=== PATIENT | female | born 1945 | race Caucasian/White ===

== ENCOUNTER 2020-10-28 21:57 | Emergency (ER) | payer MEDICARE, OTHER ==
[~2020-10-28] VITALS: Ht 165.1 cm; Wt 81.6 kg
[2020-10-28 21:57] VITALS: BP_SYST 148
[~2020-10-28 21:57] MED LIST: ASPI-524 PO; ATEN-41 PO; LEFL20TA17 PO; LOSA50TA28 PO; NORT25CA PO; OMEP20CA15 PO; PRED5TAB PO; TRAM50TA2 PO
[2020-10-28] MEDS ORDERED: ASPIRIN 81 MG TAB.CHEW PO ONE (22:30)
[2020-10-28 23:11] LABS: ANION GAP 7 (5-15); CALCIUM 9.1 mg/dL (8.4-11.0); CHLORIDE 92 mmol/L (98-107); CREATININE 1.03 mg/dL (0.55-1.30); GLUCOSE 134 mg/dL (70-99); SODIUM SERUM 127 mmol/L (136-145); UREA NITROGEN, BLOOD 10 mg/dL (8-21)
[2020-10-28 23:18] LABS: ALANINE AMINOTRANSFERASE 26 U/L (12-78); ALBUMIN 3.6 g/dL (3.4-4.8); ASPARTATE AMINOTRANSFERASE 18 U/L (10-37); TOTAL BILIRUBIN 0.3 mg/dL (0.0-1.0)
[2020-10-28 23:22] LABS: BASOPHILS # (AUTO) 0.1 K/uL (0.0-0.2); BASOPHILS % (AUTO) 0.7 % (0.0-2.0); EOSINOPHILS # (AUTO) 0.8 K/uL (0.0-0.4); EOSINOPHILS % (AUTO) 8.7 % (0.0-4.0); HEMATOCRIT 34.3 % (36-48); HEMOGLOBIN 11.9 g/dL (12.0-16.0); LYMPHOCYTES # (AUTO) 2.6 K/uL (1.0-5.5); MEAN CORPUSCULAR HEMOGLOBIN 32 pg (27-31); MEAN CORPUSCULAR HGB CONC 35 % (32-36); MEAN CORPUSCULAR VOLUME 93 fL (79.0-98.0); MONOCYTES # (AUTO) 0.4 K/uL (0.0-1.0); MONOCYTES % (AUTO) 4.4 % (1.7-9.3); NEUTROPHILS # (AUTO) 5.6 K/uL (1.8-7.7); NEUTROPHILS % (AUTO) 59.2 % (40.0-70.0); PLATELET COUNT (AUTO) 255 K/uL (130-430); RED BLOOD CELL COUNT(AUTO) 3.69 MIL/uL (4.2-6.2); RED CELL DISTRIBUTION WIDTH 13.8 % (9.0-15.0); WHITE BLOOD COUNT (AUTO) 9.5 K/uL (4.8-10.8)
--- NOTE | 2020-10-29 00:22 | NUR ---
ER Dr. Astorga in triage examining patient.
[2020-10-29] MEDS ORDERED: NACL 0.9% 1,000 ML IV ONE (00:30)
--- NOTE | 2020-10-29 02:20 | NUR ---
Patient to ER H1 to gown for evaluation. Side rails up.
--- NOTE | 2020-10-29 02:22 | NUR ---
Patient complains of chest pain x 3 days that radiates to left arm. Pt states she has numbness to arm. Pt denies N/V, fever, or SOB. No other injuries/complaints per patient or noted.
[2020-10-29] MEDS ORDERED: MORPHINE 2 MG/ML INJ. SYRINGE IVP ONE (02:30)
--- NOTE | 2020-10-29 02:30 | NUR ---
ER Dr. Astorga at bedside examining patient.
--- NOTE | 2020-10-29 03:45 | NUR ---
Assisted patient to restroom. Pt provided urine sample, specimen was sent to lab. Pt assisted back to bed in comfortable position.
--- NOTE | 2020-10-29 04:22 | NUR ---
Patient sleeping comfortably in bed. No acute distress, will continue to monitor.
[2020-10-29] MEDS ORDERED: KETOROLAC TROMETHAMINE 30 MG VIAL IVP ONE (05:30)
[2020-10-29] MEDS ORDERED: methocarbamoL 500 MG TABLET PO ONE (05:30)
[2020-10-29] MEDS ORDERED: methocarbamoL 500 MG TABLET ONE (05:34)
--- NOTE | 2020-10-29 06:50 | NUR ---
Assisted patient back to bed. No acute distress, will continue to monitor.
--- NOTE | 2020-10-29 07:25 | NUR ---
report received from Harman SAMANO. Pt is currently waiting for CT head results
[2020-10-29 07:50] LABS: THYROID STIMULATING HORMONE 7.64 uIu/mL (0.36-3.74)
--- NOTE | 2020-10-29 08:40 | NUR ---
Patient transported to radiology via , accompanied by [employer].
[2020-10-29 09:20] VITALS: BP_SYST 152
== END 2020-10-29 09:20 | disposition home or self-care (01) ==
LOC: SED 21:57
DX: R07.89 Other chest pain (principal); R20.2 Paresthesia of skin; I10 Essential (primary) hypertension; K21.9 Gastro-esophageal reflux disease without esophagitis; Z79.899 Other long term (current) drug therapy; Z79.82 Long term (current) use of aspirin
CPT/HCPCS: 36415; 70450; 71045; 76376; 80053; 82550; 83880; 84295; 84443; 84484; 85025; 93005; 96361; 96374; 96375; 99285; J1885; J2270; J7030

== ENCOUNTER 2023-07-28 11:10 | Inpatient (IN) | payer MEDICARE, OTHER ==
[~2023-07-28] VITALS: Ht 162.6 cm; Wt 81.6 kg
[2023-07-28 11:15] VITALS: BP_SYST 75; PULSE 90; RESP 20; TEMP 97.3; O2SAT 98
[2023-07-28] MEDS ORDERED: DEXTROSE 50% JECT 50 ML DISP.SYRIN ONE ×4 (11:27→22:59)
[2023-07-28] MEDS ORDERED: NACL 0.9% 2,000 ML IV ONE (11:30)
[2023-07-28 11:48] LABS: HEMATOCRIT 38.5 % (36-48); HEMOGLOBIN 12.4 g/dL (12.0-16.0); MEAN CORPUSCULAR HEMOGLOBIN 28 pg (27-31); MEAN CORPUSCULAR HGB CONC 32 % (32-36); MEAN CORPUSCULAR VOLUME 85 fL (79.0-98.0); PLATELET COUNT (AUTO) 290 K/uL (130-430); RED BLOOD CELL COUNT(AUTO) 4.52 MIL/uL (4.2-6.2); RED CELL DISTRIBUTION WIDTH 15.3 % (9.0-15.0)
[2023-07-28 11:52] LABS: ANION GAP 7 (5-15); CALCIUM 9.3 mg/dL (8.4-11.0); CARBON DIOXIDE 28 mmol/L (23-29); CHLORIDE 93 mmol/L (98-107); CREATININE 1.94 mg/dL (0.55-1.30); GLUCOSE 54 mg/dL (74-106); SODIUM SERUM 128 mmol/L (136-145); UREA NITROGEN, BLOOD 20 mg/dL (8-21); WHITE BLOOD COUNT (AUTO) 39.6 K/uL (4.8-10.8)
[2023-07-28] MEDS ORDERED: NS 500 ML IV ONE (12:00)
[2023-07-28] MEDS ORDERED: PIPERACILLIN/TAZO 4.5GM/DEX-IS 100 ML IV SCH (12:00)
[2023-07-28 12:07] LABS: ALANINE AMINOTRANSFERASE 19 U/L (12-78); ALBUMIN 3.1 g/dL (3.4-4.8); ASPARTATE AMINOTRANSFERASE 25 U/L (10-37); CREATINE KINASE, TOTAL 98 U/L (26-192); FREE T4 (FREE THYROXINE) 1.4 ng/dL (0.6-1.6); THYROID STIMULATING HORMONE 1.91 uIu/mL (0.34-4.82); TOTAL BILIRUBIN 0.5 mg/dL (0.0-1.0); TOTAL PROTEIN, SERUM 7.5 g/dL (6.4-8.3)
[2023-07-28 12:08] LABS: INR 1.1 (0.8-1.2); PROTHROMBIN TIME 10.9 SECS (9.5-12.5)
[2023-07-28] MEDS ORDERED: PIPERACILLIN/TAZO 4.5GM/DEX-IS 100 ML IV ONE (12:08)
[2023-07-28 12:17] LABS: ACETONE, SERUM NEGATIVE (NEGATIVE)
[2023-07-28 12:28] LABS: BAND % (MANUAL) 38 % (0-6); BASOPHILS % (MANUAL) 0 % (0-2); EOSINOPHILS % (MANUAL) 0 % (0-7); LYMPHOCYTES % (MANUAL) 4 % (20-46); MONOCYTES % (MANUAL) 5 % (0-11); PLATELET ESTIMATE ADEQUATE (ADEQUATE)
[2023-07-28] MEDS ORDERED: VANCOMYCIN HCL 1,500 MG in NS 250 ML IV ONE (12:30)
[2023-07-28] MEDS ORDERED: DEXTROSE 50% JECT 50 ML DISP.SYRIN IVP ONE ×2 (13:00)
[2023-07-28] MEDS ORDERED: D5/0.45 NS 1,000 ML IV ONE (13:00)
[2023-07-28] MEDS ORDERED: ONDANSETRON HCL 4 MG/2 ML VIAL IVP PRN (14:15)
[2023-07-28] MEDS ORDERED: LORazepam 2 MG/ML VIAL IVP PRN (14:15)
[2023-07-28] MEDS ORDERED: DOCUSATE SODIUM 100 MG CAPSULE PO PRN (14:15)
[2023-07-28] MEDS ORDERED: ZOLPIDEM TARTRATE 5 MG TABLET PO PRN (14:15)
[2023-07-28] MEDS ORDERED: POTASSIUM CHLORIDE 20 MEQ TAB.PRT.SR PO PRN (14:15)
[2023-07-28] MEDS ORDERED: MAGNESIUM SULFATE 50 ML IV PRN (14:15)
[2023-07-28] MEDS ORDERED: D5NS 1,000 ML IV SCH (14:15)
[2023-07-28] MEDS ORDERED: MUPIROCIN 2% TOPICAL OINTMENT 22 GM NS PRN (14:15)
[2023-07-28] MEDS ORDERED: D10W 1,000 ML IV SCH ×2 (14:45→23:00)
[2023-07-28] MEDS ORDERED: PIPERACILLIN/TAZOBACTAM 2.25 GM in NS 50 ML IV ONE (15:00)
[2023-07-28 16:46] VITALS: BP_SYST 96; PULSE 85; RESP 18; TEMP 98
[2023-07-28 16:58] VITALS: O2SAT 99
[2023-07-28 19:04] LABS: BLOOD GAS HCO3 19.1 mmol/L (21.0-27.0); BLOOD GAS PCO2 33.2 mmHg (35.0-45.0); BLOOD GAS PH 7.377 (7.350-7.450); BLOOD GAS PO2 188.6 mmHg (75.0-100.0)
[2023-07-28 19:05] LABS: ABG O2 SAT% ESTIMATE 99.3 % (94.0-100.0); ALLEN'S TEST Y (P); BLOOD GAS BASE EXCESS -5.1 mmol/L (-3.0-3.0)
[2023-07-28] MEDS ORDERED: D5W 1,000 ML IV SCH (19:15)
[2023-07-28] MEDS ORDERED: GLUCAGON,HUMAN RECOMBINANT 1 MG VIAL IM ONE (19:30)
[2023-07-28 19:57] LABS: BILIRUBIN,URINE NEGATIVE (NEGATIVE); BLOOD, URINE 2+ (NEGATIVE); CLARITY/URINE Slightly Cloudy (CLEAR); COLOR,URINE YELLOW (YELLOW); GLUCOSE,URINE NEGATIVE (NEGATIVE); KETONES,URINE NEGATIVE (NEGATIVE); LEUKOCYTE ESTERASE ,URINE 2+ (NEGATIVE); NITRITE, URINE POSITIVE (NEGATIVE); PROTEIN URINE 2+ (NEGATIVE); UROBILINOGEN,URINE 0.2 (0.2-1.0)
[2023-07-28 20:22] LABS: BACTERIA,URINE MODERATE /HPF (None Seen); MUCUS,URINE None Seen /LPF (None Seen); WBC,URINE 20-50 /HPF (0-3)
[2023-07-28 20:23] LABS: URINE AMORPHOUS PHOSPHATES 2+ /HPF (None Seen)
[2023-07-28] MEDS: NORTRIPTYLINE HCL 25 MG CAPSULE PO SCH (21:00)
[2023-07-28] MEDS: MEROPENEM 500 MG in NS 50 ML IV SCH (21:47)
[2023-07-28 22:00] VITALS: BP_SYST 116; PULSE 104; RESP 20; TEMP 99; O2SAT 99
[2023-07-28] MEDS ORDERED: D5W 1,000 ML IV PRN (22:00)
[2023-07-28] MEDS ORDERED: DEXTROSE 50% JECT 50 ML DISP.SYRIN IVP PRN (22:00)
[2023-07-28] MEDS ORDERED: GLUCOSE (DEXTROSE) ORAL GEL -Adults PO PRN (22:00)
[2023-07-28] MEDS: HEPARIN SODIUM,PORCINE 5,000 UNITS/ML VIAL SUBCUT SCH (22:26)
[2023-07-28 23:00] VITALS: BP_SYST 101; PULSE 105; RESP 22; O2SAT 95
[2023-07-29] VITALS (30 sets, daily range): BP systolic 88–143; PULSE 98–120; RESP 18–40; TEMP 96.7–98.9; O2SAT 90–99
[2023-07-29 06:30] LABS: BASOPHILS # (AUTO) 0.1 K/uL (0.0-0.2); BASOPHILS % (AUTO) 0.3 % (0.0-2.0); HEMATOCRIT 36.5 % (36-48); LYMPHOCYTES # (AUTO) 2.2 K/uL (1.0-5.5); LYMPHOCYTES % (AUTO) 5.6 % (20.5-51.5); MEAN CORPUSCULAR HEMOGLOBIN 28 pg (27-31); MEAN CORPUSCULAR HGB CONC 33 % (32-36); MEAN CORPUSCULAR VOLUME 84 fL (79.0-98.0); MONOCYTES # (AUTO) 0.6 K/uL (0.0-1.0); MONOCYTES % (AUTO) 1.6 % (1.7-9.3); NEUTROPHILS # (AUTO) 36.7 K/uL (1.8-7.7); NEUTROPHILS % (AUTO) 92.5 % (40.0-70.0); PLATELET COUNT (AUTO) 237 K/uL (130-430); RED BLOOD CELL COUNT(AUTO) 4.34 MIL/uL (4.2-6.2); RED CELL DISTRIBUTION WIDTH 15.4 % (9.0-15.0)
[2023-07-29 06:42] LABS: ANION GAP 11 (5-15); CALCIUM 7.5 mg/dL (8.4-11.0); CARBON DIOXIDE 19 mmol/L (23-29); CHLORIDE 93 mmol/L (98-107); CREATININE 1.72 mg/dL (0.55-1.30); GLUCOSE 141 mg/dL (74-106); POTASSIUM 4.4 mmol/L (3.5-5.1); SODIUM SERUM 123 mmol/L (136-145); UREA NITROGEN, BLOOD 22 mg/dL (8-21); VANCOMYCIN,RANDOM 7.6 ug/mL
[2023-07-29 06:59] LABS: WHITE BLOOD COUNT (AUTO) 39.7 K/uL (4.8-10.8)
[2023-07-29] MEDS ORDERED: ACETAMINOPHEN 500 MG TABLET PO PRN (10:15)
[2023-07-29] MEDS: ASPIRIN 81 MG TAB.CHEW PO SCH (10:54)
[2023-07-29] MEDS: traMADol HCL HCL 50 MG TABLET (ULTRAM) PO PRN ×2 (10:55→18:51)
[2023-07-29] MEDS: HEPARIN SODIUM,PORCINE 5,000 UNITS/ML VIAL SUBCUT SCH ×2 (10:56→20:42)
[2023-07-29] MEDS: MEROPENEM 500 MG in NS 50 ML IV SCH ×2 (10:58→20:35)
[2023-07-29] MEDS ORDERED: IPRATROPIUM/ALBUTEROL SULFATE 3 ML AMPUL.NEB (DUONEB) INH PRN (11:30)
[2023-07-29] MEDS ORDERED: DEXAMETHASONE SOD PHOSPHATE 4 MG/ML VIAL IVP SCH (12:00)
[2023-07-29] MEDS ORDERED: FUROSEMIDE 20 MG/2 ML VIAL IVP ONE (12:00)
[2023-07-29] MEDS ORDERED: VANCOMYCIN HCL 750 MG in NS 250 ML IV SCH (15:00)
[2023-07-29 15:51] LABS: INR 1.3 (0.8-1.2); PROTHROMBIN TIME 13.3 SECS (9.5-12.5)
[2023-07-29] MEDS: NORTRIPTYLINE HCL 25 MG CAPSULE PO SCH (20:40)
[2023-07-29] MEDS: METHYLPREDNISOLONE SOD SUCC 40 MG/ML VIAL IVP SCH (20:40)
[2023-07-30] VITALS (27 sets, daily range): BP systolic 126–180; PULSE 57–108; RESP 16–31; TEMP 97.4–98.8; O2SAT 92–100
[2023-07-30] MEDS: traMADol HCL HCL 50 MG TABLET (ULTRAM) PO PRN ×2 (05:13→13:16)
[2023-07-30 05:47] LABS: BASOPHILS # (AUTO) 0.1 K/uL (0.0-0.2); BASOPHILS % (AUTO) 0.1 % (0.0-2.0); EOSINOPHILS # (AUTO) 0.1 K/uL (0.0-0.4); EOSINOPHILS % (AUTO) 0.2 % (0.0-4.0); HEMATOCRIT 35.6 % (36-48); HEMOGLOBIN 11.9 g/dL (12.0-16.0); LYMPHOCYTES # (AUTO) 1.1 K/uL (1.0-5.5); LYMPHOCYTES % (AUTO) 2.7 % (20.5-51.5); MEAN CORPUSCULAR HEMOGLOBIN 28 pg (27-31); MEAN CORPUSCULAR HGB CONC 33 % (32-36); MEAN CORPUSCULAR VOLUME 83 fL (79.0-98.0); MONOCYTES # (AUTO) 0.9 K/uL (0.0-1.0); MONOCYTES % (AUTO) 2.1 % (1.7-9.3); NEUTROPHILS # (AUTO) 39.7 K/uL (1.8-7.7); NEUTROPHILS % (AUTO) 94.9 % (40.0-70.0); PLATELET COUNT (AUTO) 196 K/uL (130-430); RED BLOOD CELL COUNT(AUTO) 4.27 MIL/uL (4.2-6.2); RED CELL DISTRIBUTION WIDTH 15.3 % (9.0-15.0)
[2023-07-30 05:58] LABS: ANION GAP 9 (5-15); CALCIUM 7.7 mg/dL (8.4-11.0); CARBON DIOXIDE 22 mmol/L (23-29); CHLORIDE 93 mmol/L (98-107); CREATININE 1.56 mg/dL (0.55-1.30); GLUCOSE 211 mg/dL (74-106); POTASSIUM 3.8 mmol/L (3.5-5.1); SODIUM SERUM 124 mmol/L (136-145); UREA NITROGEN, BLOOD 28 mg/dL (8-21)
[2023-07-30 06:09] LABS: WHITE BLOOD COUNT (AUTO) 41.8 K/uL (4.8-10.8)
[2023-07-30] MEDS: ASPIRIN 81 MG TAB.CHEW PO SCH (09:05)
[2023-07-30] MEDS: METHYLPREDNISOLONE SOD SUCC 40 MG/ML VIAL IVP SCH (09:07)
[2023-07-30] MEDS: HEPARIN SODIUM,PORCINE 5,000 UNITS/ML VIAL SUBCUT SCH (09:07)
[2023-07-30] MEDS: MEROPENEM 500 MG in NS 50 ML IV SCH (09:08)
[2023-07-30] MEDS ORDERED: METOPROLOL TARTRATE 25 MG TABLET ONE (14:18)
[2023-07-30] MEDS ORDERED: METOPROLOL TARTRATE 25 MG TABLET PO ONE (14:30)
[2023-07-30] MEDS ORDERED: METOPROLOL TARTRATE 25 MG TABLET PO SCH (21:00)
== END 2023-07-30 15:45 | disposition short-term general hospital (02) | DRG 871 ==
LOC: SED 11:10 → STU 14:17 → SIC 21:13
PROVIDERS: ADMIT General Practice; ATTEND General Practice
PROC: 4A00X4Z Measurement of Central Nervous Electrical Activity, External Approach (ICD-10-PCS; principal; 2023-07-29)
DX: A41.9 Sepsis, unspecified organism (principal); N17.0 Acute kidney failure with tubular necrosis; R65.21 Severe sepsis with septic shock; E87.1 Hypo-osmolality and hyponatremia; M48.56XA Collapsed vertebra, not elsewhere classified, lumbar region, initial encounter for fracture; M48.54XA Collapsed vertebra, not elsewhere classified, thoracic region, initial encounter for fracture; G93.49 Other encephalopathy; N39.0 Urinary tract infection, site not specified; K21.9 Gastro-esophageal reflux disease without esophagitis; I10 Essential (primary) hypertension; G62.9 Polyneuropathy, unspecified; E78.5 Hyperlipidemia, unspecified; E03.9 Hypothyroidism, unspecified; T38.0X5A Adverse effect of glucocorticoids and synthetic analogues, initial encounter; Z20.822 Contact with and (suspected) exposure to COVID-19; E16.2 Hypoglycemia, unspecified; M06.9 Rheumatoid arthritis, unspecified; M54.50 Low back pain, unspecified; G89.29 Other chronic pain; E66.9 Obesity, unspecified; Z88.6 Allergy status to analgesic agent; Z88.5 Allergy status to narcotic agent; Z79.899 Other long term (current) drug therapy; Z79.52 Long term (current) use of systemic steroids; Z87.440 Personal history of urinary (tract) infections; Z68.30 Body mass index [BMI] 30.0-30.9, adult; Y92.89 Other specified places as the place of occurrence of the external cause
CPT/HCPCS: 36415; 36600; 70450-TC; 71045; 71250-TC; 72125-TC; 76376; 76770; 78580-TC; 80048; 80053; 80202; 81000; 82009; 82306; 82533; 82550; 82803; 82947; 82962; 83037; 83605; 83735; 84439; 84443; 84484; 85007; 85025; 85027; 85610-TC; 85730-TC; 87040; 87081; 87086; 93005; 95816; 96365; 99291; A9540; C1751; J1030; J1100; J1610; J1644; J1940; J2185; J2405; J2543; J3370; J3475; J7042; J7050

== ENCOUNTER 2023-12-25 20:11 | Emergency (ER) | payer MEDICARE, OTHER ==
[~2023-12-25] VITALS: Ht 165.1 cm; Wt 60.8 kg
[2023-12-25 20:39] VITALS: BP_SYST 112; PULSE 97; RESP 16; TEMP 98.1; O2SAT 97
[2023-12-25 21:27] LABS: BASOPHILS % (AUTO) 0.3 % (0.0-2.0); HEMATOCRIT 35.8 % (36-48); HEMOGLOBIN 11.8 g/dL (12.0-16.0); LYMPHOCYTES # (AUTO) 2.3 K/uL (1.0-5.5); LYMPHOCYTES % (AUTO) 31.7 % (20.5-51.5); MEAN CORPUSCULAR HEMOGLOBIN 28 pg (27-31); MEAN CORPUSCULAR HGB CONC 33 % (32-36); MEAN CORPUSCULAR VOLUME 84 fL (79.0-98.0); MONOCYTES # (AUTO) 0.5 K/uL (0.0-1.0); MONOCYTES % (AUTO) 6.4 % (1.7-9.3); NEUTROPHILS # (AUTO) 4.6 K/uL (1.8-7.7); NEUTROPHILS % (AUTO) 61.6 % (40.0-70.0); PLATELET COUNT (AUTO) 285 K/uL (130-430); RED BLOOD CELL COUNT(AUTO) 4.24 MIL/uL (4.2-6.2); RED CELL DISTRIBUTION WIDTH 15.3 % (9.0-15.0); WHITE BLOOD COUNT (AUTO) 7.4 K/uL (4.8-10.8)
[2023-12-25 21:38] LABS: ANION GAP 9 (5-15); CALCIUM 9.2 mg/dL (8.4-11.0); CARBON DIOXIDE 24 mmol/L (23-29); CHLORIDE 100 mmol/L (98-107); CREATININE 1.06 mg/dL (0.55-1.30); GLUCOSE 111 mg/dL (74-106); POTASSIUM 3.8 mmol/L (3.5-5.1); SODIUM SERUM 133 mmol/L (136-145); UREA NITROGEN, BLOOD 8 mg/dL (8-21)
[2023-12-25 21:42] LABS: ALANINE AMINOTRANSFERASE 31 U/L (12-78); ALBUMIN 2.5 g/dL (3.4-4.8); ASPARTATE AMINOTRANSFERASE 46 U/L (10-37); BILIRUBIN,DIRECT 0.3 mg/dL (0.0-0.3); TOTAL BILIRUBIN 0.7 mg/dL (0.0-1.0); TOTAL PROTEIN, SERUM 6.4 g/dL (6.4-8.3)
[2023-12-25] MEDS: NACL 0.9% 1,000 ML IV ONE (22:09)
[2023-12-25 23:38] VITALS: BP_SYST 112; PULSE 97; RESP 16; TEMP 98.1; O2SAT 97
[2023-12-25 23:58] LABS: BILIRUBIN,URINE NEGATIVE (NEGATIVE); BLOOD, URINE NEGATIVE (NEGATIVE); CLARITY/URINE CLEAR (CLEAR); COLOR,URINE YELLOW (YELLOW); GLUCOSE,URINE NEGATIVE (NEGATIVE); KETONES,URINE NEGATIVE (NEGATIVE); LEUKOCYTE ESTERASE ,URINE TRACE (NEGATIVE); NITRITE, URINE NEGATIVE (NEGATIVE); PH,URINE 7.5 (5.0-8.0); PROTEIN URINE NEGATIVE (NEGATIVE); UROBILINOGEN,URINE 0.2 (0.2-1.0)
[2023-12-26 00:30] LABS: BACTERIA,URINE None Seen /HPF (None Seen)
== END 2023-12-25 23:55 | disposition home or self-care (01) ==
LOC: SED 20:11
DX: E86.0 Dehydration (principal); R42 Dizziness and giddiness; K21.9 Gastro-esophageal reflux disease without esophagitis; I10 Essential (primary) hypertension; Z88.5 Allergy status to narcotic agent; Z88.6 Allergy status to analgesic agent; Z79.899 Other long term (current) drug therapy
CPT/HCPCS: 99283; 96360; 96361; 80076; 80048; 81001; 85025; 36415; 81000; 81015; J7030

== ENCOUNTER 2024-02-22 22:46 | Emergency (ER) | payer MEDICARE, OTHER ==
[~2024-02-22] VITALS: Ht 160 cm; Wt 47.6 kg
[2024-02-22 22:58] VITALS: BP_SYST 135; PULSE 73; RESP 16; TEMP 97.9; O2SAT 98
[2024-02-23 00:06] LABS: BASOPHILS % (AUTO) 0.4 % (0.0-2.0); EOSINOPHILS # (AUTO) 0.2 K/uL (0.0-0.4); HEMOGLOBIN 9.4 g/dL (12.0-16.0); LYMPHOCYTES # (AUTO) 2.2 K/uL (1.0-5.5); LYMPHOCYTES % (AUTO) 38.1 % (20.5-51.5); MEAN CORPUSCULAR HEMOGLOBIN 33 pg (27-31); MEAN CORPUSCULAR HGB CONC 35 % (32-36); MEAN CORPUSCULAR VOLUME 95 fL (79.0-98.0); MONOCYTES # (AUTO) 0.4 K/uL (0.0-1.0); MONOCYTES % (AUTO) 7.6 % (1.7-9.3); NEUTROPHILS % (AUTO) 50.9 % (40.0-70.0); PLATELET COUNT (AUTO) 86 K/uL (130-430); RED BLOOD CELL COUNT(AUTO) 2.84 MIL/uL (4.2-6.2); RED CELL DISTRIBUTION WIDTH 20.6 % (9.0-15.0); WHITE BLOOD COUNT (AUTO) 5.9 K/uL (4.8-10.8)
[2024-02-23 00:31] LABS: ALANINE AMINOTRANSFERASE 20 U/L (12-78); ALBUMIN 2.1 g/dL (3.4-4.8); ANION GAP 7 (5-15); ASPARTATE AMINOTRANSFERASE 27 U/L (10-37); BILIRUBIN,DIRECT 0.3 mg/dL (0.0-0.3); CALCIUM 7.9 mg/dL (8.4-11.0); CARBON DIOXIDE 24 mmol/L (23-29); CHLORIDE 104 mmol/L (98-107); CREATININE 0.99 mg/dL (0.55-1.30); GLUCOSE 75 mg/dL (74-106); SODIUM SERUM 135 mmol/L (136-145); TOTAL BILIRUBIN 0.6 mg/dL (0.0-1.0); TOTAL PROTEIN, SERUM 4.9 g/dL (6.4-8.3); UREA NITROGEN, BLOOD 11 mg/dL (8-21)
[2024-02-23 00:36] LABS: POTASSIUM 2.9 mmol/L (3.5-5.1)
[2024-02-23] MEDS: POTASSIUM CHLORIDE 20 MEQ/PKT PACKET PO ONE (02:00)
[2024-02-23] MEDS ORDERED: AZITHROMYCIN 500 MG/VIAL (ZITHROMAX) IV ONE (02:15)
[2024-02-23] MEDS: AZITHROMYCIN 500 MG in NS 250 ML IV ONE (02:17)
[2024-02-23] MEDS: NACL 0.9% 1,400 ML IV ONE (02:26)
[2024-02-23] MEDS ORDERED: cefTRIAXone 1 GM IVPB PREMIX 50 ML IV ONE (04:30)
[2024-02-23] MEDS: cefTRIAXone 1 GM IVPB PREMIX 50 ML IV ONE (04:42)
[2024-02-23] MEDS: MORPHINE 4 MG INJ. 4 MG/ML VIAL IVP ONE (04:44)
[2024-02-23 04:50] LABS: BILIRUBIN,URINE NEGATIVE (NEGATIVE); BLOOD, URINE NEGATIVE (NEGATIVE); COLOR,URINE YELLOW (YELLOW); GLUCOSE,URINE NEGATIVE (NEGATIVE); KETONES,URINE NEGATIVE (NEGATIVE); LEUKOCYTE ESTERASE ,URINE 1+ (NEGATIVE); NITRITE, URINE NEGATIVE (NEGATIVE); PROTEIN URINE NEGATIVE (NEGATIVE); UROBILINOGEN,URINE 0.2 (0.2-1.0)
[2024-02-23 05:48] LABS: CLARITY/URINE SLIGHTLY CLOUDY (CLEAR)
[2024-02-23 05:49] LABS: BACTERIA,URINE FEW /HPF (None Seen); RBC,URINE 0-3 /HPF (0-3)
[2024-02-23 06:05] VITALS: BP_SYST 132; PULSE 80; RESP 22; TEMP 98.4; O2SAT 95
[2024-02-23] MEDS ORDERED: SULF500T8 PO (06:05)
[2024-02-23] MEDS ORDERED: INSULIN REGULAR, HUMAN 100 UNITS/ML, 3 ML VIAL (humuLIN R) SUBCUT PRN (06:15)
[2024-02-23] MEDS ORDERED: NACL 0.9% 1,000 ML IV ONE (09:00)
== END 2024-02-23 06:10 | disposition short-term general hospital (02) ==
LOC: SED 22:46
DX: R53.1 Weakness (principal); E87.6 Hypokalemia; J16.8 Pneumonia due to other specified infectious organisms; A41.9 Sepsis, unspecified organism; J45.909 Unspecified asthma, uncomplicated; K21.9 Gastro-esophageal reflux disease without esophagitis; I10 Essential (primary) hypertension; Z88.5 Allergy status to narcotic agent; Z88.6 Allergy status to analgesic agent; Z79.899 Other long term (current) drug therapy; Z20.822 Contact with and (suspected) exposure to COVID-19
CPT/HCPCS: 99291; 71045; 87426; 80076; 80048; 81001; 85025; 87040; 87086; 84484; 36415; 83605; 81000; 96365; 96367; 96375; 81015; J0456; J0696; J2270

== ENCOUNTER 2024-04-26 02:02 | Inpatient (IN) | payer MEDICARE, OTHER ==
[~2024-04-26] VITALS: Ht 162.6 cm; Wt 68.9 kg
[~2024-04-26 02:02] MED LIST changes: -LEFL20TA17 PO; +LEFL20TA21 PO; +LIDO-54 ID; +SULF500T8 PO
[2024-04-26 02:15] VITALS: BP_SYST 161; PULSE 81; RESP 18; TEMP 96.3; O2SAT 98
[2024-04-26 03:50] LABS: BASOPHILS # (AUTO) 0.1 K/uL (0.0-0.2); BASOPHILS % (AUTO) 0.6 % (0.0-2.0); EOSINOPHILS # (AUTO) 0.4 K/uL (0.0-0.4); EOSINOPHILS % (AUTO) 3.7 % (0.0-4.0); HEMOGLOBIN 10.4 g/dL (12.0-16.0); LYMPHOCYTES # (AUTO) 2.1 K/uL (1.0-5.5); LYMPHOCYTES % (AUTO) 19.2 % (20.5-51.5); MEAN CORPUSCULAR HEMOGLOBIN 30 pg (27-31); MEAN CORPUSCULAR HGB CONC 34 % (32-36); MEAN CORPUSCULAR VOLUME 89 fL (79.0-98.0); MONOCYTES # (AUTO) 0.7 K/uL (0.0-1.0); MONOCYTES % (AUTO) 6.5 % (1.7-9.3); NEUTROPHILS # (AUTO) 7.5 K/uL (1.8-7.7); PLATELET COUNT (AUTO) 253 K/uL (130-430); RED BLOOD CELL COUNT(AUTO) 3.51 MIL/uL (4.2-6.2); RED CELL DISTRIBUTION WIDTH 14.6 % (9.0-15.0); WHITE BLOOD COUNT (AUTO) 10.7 K/uL (4.8-10.8)
[2024-04-26 04:15] LABS: ANION GAP 10 (5-15); CALCIUM 8.8 mg/dL (8.4-11.0); CARBON DIOXIDE 26 mmol/L (23-29); CHLORIDE 96 mmol/L (98-107); CREATININE 0.95 mg/dL (0.55-1.30); GLUCOSE 94 mg/dL (74-106); POTASSIUM 3.7 mmol/L (3.5-5.1); SODIUM SERUM 132 mmol/L (136-145); UREA NITROGEN, BLOOD 18 mg/dL (8-21)
[2024-04-26] MEDS: LORazepam 2 MG/ML VIAL IVP ONE (04:23)
[2024-04-26] MEDS: KETOROLAC TROMETHAMINE 15 MG VIAL IVP ONE (04:24)
[2024-04-26 05:44] LABS: BILIRUBIN,URINE NEGATIVE (NEGATIVE); BLOOD, URINE NEGATIVE (NEGATIVE); COLOR,URINE YELLOW (YELLOW); GLUCOSE,URINE NEGATIVE (NEGATIVE); KETONES,URINE NEGATIVE (NEGATIVE); LEUKOCYTE ESTERASE ,URINE 3+ (NEGATIVE); NITRITE, URINE NEGATIVE (NEGATIVE); PROTEIN URINE NEGATIVE (NEGATIVE); UROBILINOGEN,URINE 0.2 (0.2-1.0)
[2024-04-26 05:53] LABS: CLARITY/URINE SLIGHTLY CLOUDY (CLEAR)
[2024-04-26 05:54] LABS: BACTERIA,URINE MODERATE /HPF (None Seen); RBC,URINE 0-3 /HPF (0-3); WBC,URINE 80-100 /HPF (0-3)
[2024-04-26] MEDS: NACL 0.9% 1,000 ML IV ONE (07:33)
[2024-04-26] MEDS: cefTRIAXone 1 GM IVPB PREMIX 50 ML IV ONE (08:23)
[2024-04-26] MEDS ORDERED: PRED10TA PO (10:35)
[2024-04-26] MEDS ORDERED: ALVESCO (10:35)
[2024-04-26] MEDS ORDERED: SPIR25TA6 PO (10:35)
[2024-04-26] MEDS ORDERED: LEVO25TA7 PO (10:35)
[2024-04-26] MEDS ORDERED: HYDR-3917 PO (10:35)
[2024-04-26] MEDS ORDERED: ALEN70TA27 PO (10:35)
[2024-04-26] MEDS ORDERED: ALBU10.7 (10:35)
[2024-04-26] MEDS ORDERED: SUMA50TA16 PO (10:35)
[2024-04-26] MEDS ORDERED: MAGN400T29 PO (10:35)
[2024-04-26] MEDS ORDERED: FOLI-43 PO (10:35)
[2024-04-26] MEDS ORDERED: DOCUSATE SODIUM 100 MG CAPSULE PO PRN (12:00)
[2024-04-26] MEDS ORDERED: POTASSIUM CHLORIDE 20 MEQ TABLET.ER PO PRN (12:00)
[2024-04-26] MEDS ORDERED: MAGNESIUM SULFATE 50 ML IV PRN (12:00)
[2024-04-26] MEDS ORDERED: ZOLPIDEM TARTRATE 5 MG TABLET PO PRN (12:00)
[2024-04-26] MEDS ORDERED: ONDANSETRON HCL 4 MG/2 ML VIAL IVP PRN (12:00)
[2024-04-26] MEDS ORDERED: MUPIROCIN 2% TOPICAL OINTMENT 22 GM NS PRN (12:00)
[2024-04-26 12:30] VITALS: BP_SYST 162; PULSE 77; RESP 18; TEMP 96.2; O2SAT 100; O2SAT 95
[2024-04-26] MEDS: traMADol HCL HCL 50 MG TABLET (ULTRAM) PO PRN (16:57)
[2024-04-26 20:00] VITALS: BP_SYST 149; PULSE 87; RESP 16; TEMP 97.8; O2SAT 99
[2024-04-26] MEDS: NACL 0.9% 1,000 ML IV SCH (22:07)
[2024-04-26] MEDS: sulfaSALAzine 500 MG TABLET PO SCH (22:08)
[2024-04-26] MEDS: NORTRIPTYLINE HCL 25 MG CAPSULE PO SCH (22:08)
[2024-04-26] MEDS: HEPARIN SODIUM,PORCINE 5,000 UNITS/ML VIAL SUBCUT SCH (22:13)
[2024-04-27 00:30] VITALS: BP_SYST 138; PULSE 79; RESP 16; TEMP 96.8; O2SAT 97
[2024-04-27 05:55] LABS: BASOPHILS % (AUTO) 0.4 % (0.0-2.0); EOSINOPHILS # (AUTO) 0.1 K/uL (0.0-0.4); EOSINOPHILS % (AUTO) 0.9 % (0.0-4.0); HEMATOCRIT 29.5 % (36-48); LYMPHOCYTES # (AUTO) 1.9 K/uL (1.0-5.5); LYMPHOCYTES % (AUTO) 18.7 % (20.5-51.5); MEAN CORPUSCULAR HEMOGLOBIN 30 pg (27-31); MEAN CORPUSCULAR HGB CONC 34 % (32-36); MEAN CORPUSCULAR VOLUME 88 fL (79.0-98.0); MONOCYTES # (AUTO) 0.4 K/uL (0.0-1.0); MONOCYTES % (AUTO) 3.7 % (1.7-9.3); NEUTROPHILS # (AUTO) 7.8 K/uL (1.8-7.7); NEUTROPHILS % (AUTO) 76.3 % (40.0-70.0); PLATELET COUNT (AUTO) 254 K/uL (130-430); RED BLOOD CELL COUNT(AUTO) 3.34 MIL/uL (4.2-6.2); RED CELL DISTRIBUTION WIDTH 14.6 % (9.0-15.0); WHITE BLOOD COUNT (AUTO) 10.2 K/uL (4.8-10.8)
[2024-04-27] MEDS: LEVOTHYROXINE SODIUM 0.025 MG TABLET PO SCH (06:00)
[2024-04-27 06:36] LABS: ANION GAP 10 (5-15); CALCIUM 8.7 mg/dL (8.4-11.0); CARBON DIOXIDE 24 mmol/L (23-29); CHLORIDE 100 mmol/L (98-107); CREATININE 0.95 mg/dL (0.55-1.30); GLUCOSE 75 mg/dL (74-106); POTASSIUM 4.5 mmol/L (3.5-5.1); SODIUM SERUM 134 mmol/L (136-145); UREA NITROGEN, BLOOD 15 mg/dL (8-21)
[2024-04-27] MEDS: cefTRIAXone 1 GM in D5W 50 ML IV SCH (09:38)
[2024-04-27] MEDS: ASPIRIN 81 MG TAB.CHEW PO SCH (09:59)
[2024-04-27] MEDS: ATENOLOL 25 MG TABLET(TENORMIN) PO SCH (10:00)
[2024-04-27] MEDS: predniSONE 5 MG TABLET PO SCH (10:01)
[2024-04-27] MEDS: LOSARTAN POTASSIUM 50 MG TABLET (COZAAR) PO SCH (10:01)
[2024-04-27 12:10] VITALS: BP_SYST 136; PULSE 66; RESP 16; TEMP 97.5; O2SAT 99
[2024-04-27] MEDS: LORazepam 2 MG/ML VIAL IVP PRN (13:32)
[2024-04-27] MEDS ORDERED: NITR-85 PO (14:52)
[2024-04-27 15:18] VITALS: BP_SYST 136; PULSE 66; RESP 17; TEMP 97.5; O2SAT 99
== END 2024-04-27 16:30 | disposition home or self-care (01) | DRG 71 ==
LOC: SED 02:02 → SMU 10:21
PROVIDERS: ADMIT General Practice; ATTEND General Practice
DX: G93.41 Metabolic encephalopathy (principal); N39.0 Urinary tract infection, site not specified; F41.9 Anxiety disorder, unspecified; M06.8A Other specified rheumatoid arthritis, other specified site; J45.909 Unspecified asthma, uncomplicated; E11.9 Type 2 diabetes mellitus without complications; Z79.899 Other long term (current) drug therapy; Z88.8 Allergy status to other drugs, medicaments and biological substances
CPT/HCPCS: 36415; 70450-TC; 71045; 80048; 81000; 81001; 81015; 83037; 83735; 83880; 84484; 85025; 87040; 87086; 93005; 96365; 96375; 97116-GP; 97530-GP; 99285; J0696; J1644; J1885; J2060; J7060; J7512; Q9967

== ENCOUNTER 2024-04-30 04:28 | Emergency (ER) | payer MEDICARE, OTHER ==
[~2024-04-30] VITALS: Ht 162.6 cm; Wt 59.9 kg
[~2024-04-30 04:28] MED LIST changes: +ALBU10.7; +ALEN70TA27 PO; +ALVESCO; +FOLI-43 PO; +HYDR-3917 PO; +LEVO25TA7 PO; +MAGN400T29 PO; +NITR-85 PO; +PRED10TA PO; +SPIR25TA6 PO; +SUMA50TA16 PO
[2024-04-30 04:45] VITALS: BP_SYST 191; PULSE 70; RESP 20; TEMP 97.3; O2SAT 99
[2024-04-30] MEDS: LORazepam 1 MG TABLET PO ONE (05:00)
[2024-04-30 05:23] LABS: BASOPHILS # (AUTO) 0.1 K/uL (0.0-0.2); BASOPHILS % (AUTO) 0.9 % (0.0-2.0); EOSINOPHILS # (AUTO) 0.3 K/uL (0.0-0.4); EOSINOPHILS % (AUTO) 2.6 % (0.0-4.0); HEMATOCRIT 30.3 % (36-48); HEMOGLOBIN 10.4 g/dL (12.0-16.0); LYMPHOCYTES # (AUTO) 2.5 K/uL (1.0-5.5); LYMPHOCYTES % (AUTO) 26.4 % (20.5-51.5); MEAN CORPUSCULAR HEMOGLOBIN 30 pg (27-31); MEAN CORPUSCULAR HGB CONC 35 % (32-36); MEAN CORPUSCULAR VOLUME 87 fL (79.0-98.0); MONOCYTES # (AUTO) 0.7 K/uL (0.0-1.0); MONOCYTES % (AUTO) 7.6 % (1.7-9.3); NEUTROPHILS % (AUTO) 62.5 % (40.0-70.0); PLATELET COUNT (AUTO) 295 K/uL (130-430); RED BLOOD CELL COUNT(AUTO) 3.49 MIL/uL (4.2-6.2); RED CELL DISTRIBUTION WIDTH 14.5 % (9.0-15.0); WHITE BLOOD COUNT (AUTO) 9.6 K/uL (4.8-10.8)
[2024-04-30 05:57] LABS: ANION GAP 13 (5-15); CALCIUM 9.4 mg/dL (8.4-11.0); CARBON DIOXIDE 21 mmol/L (23-29); CHLORIDE 93 mmol/L (98-107); GLUCOSE 97 mg/dL (74-106); POTASSIUM 3.8 mmol/L (3.5-5.1); SODIUM SERUM 127 mmol/L (136-145); UREA NITROGEN, BLOOD 14 mg/dL (8-21)
[2024-04-30] MEDS: cloNIDine HCL 0.1 MG TABLET PO ONE (08:16)
[2024-04-30 08:58] VITALS: BP_SYST 151; PULSE 77; RESP 15; TEMP 98.1; O2SAT 94
[2024-05-01] MEDS ORDERED: ESCI10TA PO (20:34)
[2024-05-01] MEDS ORDERED: BUSP5TAB3 PO (20:34)
== END 2024-04-30 08:57 | disposition home or self-care (01) ==
LOC: SED 04:28
DX: F41.0 Panic disorder [episodic paroxysmal anxiety] (principal); R00.2 Palpitations; J45.909 Unspecified asthma, uncomplicated; E11.9 Type 2 diabetes mellitus without complications; I10 Essential (primary) hypertension; Z88.6 Allergy status to analgesic agent; Z88.5 Allergy status to narcotic agent; Z88.8 Allergy status to other drugs, medicaments and biological substances; Z79.899 Other long term (current) drug therapy; Z79.2 Long term (current) use of antibiotics
CPT/HCPCS: 36415; 80048; 84484; 85025; 85379; 93005; 99285

== ENCOUNTER 2024-05-01 16:29 | Emergency (ER) | payer MEDICARE, OTHER ==
[~2024-05-01] VITALS: Ht 162.6 cm; Wt 59.9 kg
[2024-05-01 16:33] VITALS: BP_SYST 143; PULSE 79; RESP 18; TEMP 97.8; O2SAT 99
[2024-05-01 17:18] LABS: BASOPHILS % (AUTO) 0.3 % (0.0-2.0); EOSINOPHILS % (AUTO) 0.3 % (0.0-4.0); HEMATOCRIT 30.9 % (36-48); HEMOGLOBIN 10.6 g/dL (12.0-16.0); LYMPHOCYTES # (AUTO) 2.1 K/uL (1.0-5.5); LYMPHOCYTES % (AUTO) 17.4 % (20.5-51.5); MEAN CORPUSCULAR HEMOGLOBIN 30 pg (27-31); MEAN CORPUSCULAR HGB CONC 34 % (32-36); MEAN CORPUSCULAR VOLUME 86 fL (79.0-98.0); MONOCYTES # (AUTO) 0.5 K/uL (0.0-1.0); MONOCYTES % (AUTO) 4.6 % (1.7-9.3); NEUTROPHILS # (AUTO) 9.3 K/uL (1.8-7.7); NEUTROPHILS % (AUTO) 77.4 % (40.0-70.0); PLATELET COUNT (AUTO) 284 K/uL (130-430); RED CELL DISTRIBUTION WIDTH 14.7 % (9.0-15.0)
[2024-05-01 17:41] LABS: ANION GAP 9 (5-15); CARBON DIOXIDE 23 mmol/L (23-29); CHLORIDE 90 mmol/L (98-107); CREATININE 0.95 mg/dL (0.55-1.30); GLUCOSE 132 mg/dL (74-106); POTASSIUM 4.3 mmol/L (3.5-5.1); SODIUM SERUM 122 mmol/L (136-145); UREA NITROGEN, BLOOD 13 mg/dL (8-21)
[2024-05-01] MEDS: KETOROLAC TROMETHAMINE 15 MG VIAL IVP ONE ×2 (18:21→21:11)
[2024-05-01 19:21] LABS: BILIRUBIN,URINE NEGATIVE (NEGATIVE); BLOOD, URINE NEGATIVE (NEGATIVE); CLARITY/URINE CLEAR (CLEAR); COLOR,URINE YELLOW (YELLOW); GLUCOSE,URINE NEGATIVE (NEGATIVE); KETONES,URINE NEGATIVE (NEGATIVE); LEUKOCYTE ESTERASE ,URINE NEGATIVE (NEGATIVE); NITRITE, URINE NEGATIVE (NEGATIVE); PROTEIN URINE NEGATIVE (NEGATIVE); UROBILINOGEN,URINE 0.2 (0.2-1.0)
[2024-05-01] MEDS: NACL 0.9% 1,000 ML IV ONE (20:03)
[2024-05-01] MEDS ORDERED: ESCI10TA PO (20:34)
[2024-05-01] MEDS ORDERED: BUSP5TAB3 PO (20:34)
[2024-05-01] MEDS: ONDANSETRON HCL 4 MG/2 ML VIAL IVP ONE (21:09)
[2024-05-01] MEDS: MORPHINE 2 MG/ML INJ. SYRINGE IVP ONE (21:10)
[2024-05-02 00:07] VITALS: BP_SYST 137; PULSE 96; RESP 20; TEMP 98; O2SAT 98
== END 2024-05-02 00:07 | disposition short-term general hospital (02) ==
LOC: SED 16:29
DX: E87.1 Hypo-osmolality and hyponatremia (principal); R53.1 Weakness; M54.50 Low back pain, unspecified; M54.6 Pain in thoracic spine; Z20.822 Contact with and (suspected) exposure to COVID-19; J45.909 Unspecified asthma, uncomplicated; E11.9 Type 2 diabetes mellitus without complications; K21.9 Gastro-esophageal reflux disease without esophagitis; I10 Essential (primary) hypertension; Z98.890 Other specified postprocedural states; Z88.5 Allergy status to narcotic agent; Z88.6 Allergy status to analgesic agent; Z88.8 Allergy status to other drugs, medicaments and biological substances; Z79.899 Other long term (current) drug therapy; Z79.2 Long term (current) use of antibiotics
CPT/HCPCS: 99285; 96374; 96375; 71045; 96361; 87426; 80048; 81001; 83880; 85025; 84484; 36415; 93005; 96376; J1885; J2405; J2270; J7030; 81003